=== PATIENT | male | born 1950 | race African-American/Black ===

== ENCOUNTER 2024-08-19 13:38 | Emergency (ER) | payer MEDICARE, MEDICAID ==
[~2024-08-19] VITALS: Ht 162.6 cm; Wt 61.4 kg
[~2024-08-19 13:38] MED LIST: DIAZ10TA3 PO; PHEN100C PO; PHENOBARBITAL PO; prozac PO
[2024-08-19 15:21] LABS: Basophils # (auto) 0 10 ^3/uL (0-0.2); Basophils % (auto) 0.4 % (0.0-2.0); Eosinophils # (auto) 0.1 10 ^3/uL (0-0.8); Eosinophils % (auto) 2.4 % (0.0-7.0); Hematocrit 48.7 % (41.0-53.0); Hemoglobin 16.4 g/dL (13.5-17.5); Lymphocytes # (auto) 1.3 10 ^3/uL (0.4-5.4); Lymphocytes % (auto) 40.1 % (10.0-50.0); Mean Corpuscular Hemoglobin 29.8 pg (28.0-32.0); Mean Corpuscular Hgb Conc. 33.6 g/dL (32.0-36.0); Mean Corpuscular Volume 88.4 fL (80.0-100.0); Monocytes # (auto) 0.4 10 ^3/uL (0-1.3); Monocytes % (auto) 11.5 % (0.0-12.0); Neutrophils # (auto) 1.5 10 ^3/uL (1.6-8.6); Neutrophils % (auto) 45.6 % (37.0-80.0); Nucleated Red Blood Cells % 0.5 %; Platelet Count (auto) 124 10^3/uL (140-450); Red Cell Distribution Width 14.6 % (11.8-14.3); White Blood Cell 3.3 10^3/uL (4.4-10.8)
[2024-08-19 15:36] LABS: Alanine Aminotransferase 36 U/L (7-40); Albumin 4.2 g/dL (3.2-4.8); Alkaline Phosphatase 120 U/L (46-116); Anion Gap 6 (5-15); Aspartate Aminotransferase 37 U/L (13-40); Bilirubin, Total 0.4 mg/dL (0.2-1.0); Blood Urea Nitrogen 16 mg/dL (9-23); Calcium 9.7 mg/dL (8.7-10.4); Carbon Dioxide 27 mmol/L (20-31); Chloride 108 mmol/L (98-107); Glucose 82 mg/dL (74-106); Potassium 4.1 mmol/L (3.5-5.1); Sodium 141 mmol/L (136-145)
[2024-08-19 16:10] LABS: Urine Bacteria FEW /hpf (None Seen); Urine Blood Negative /uL (Negative); Urine Clarity Clear (Clear); Urine Color Yellow (Yellow); Urine Mucus FEW (None Seen); Urine Protein, UAD TRACE (Negative); Urine Specific Gravity 1.026 (1.001-1.035); Urine Urobilinogen Normal (Negative); Urine WBC 1 /hpf (0 - 3); Urine pH 5.5 (5.0-9.0)
[2024-08-19] MEDS ORDERED: AUG875T PO (16:17)
[2024-08-19 17:48] VITALS: BP 145/85; RESP 20; TEMP 98.6; O2SAT 96
[2024-08-19 17:49] VITALS: PULSE 66
[2024-08-19] MEDS: cefTRIAXone W LIDOCAINE 1 GM IM IM ONE (18:03)
[2024-08-19] MEDS: cefTRIAXone SOD 1,000 MG VL ONE (18:04)
== END 2024-08-19 18:07 | disposition home or self-care (01) ==
LOC: ER 13:38
DX: L03.116 Cellulitis of left lower limb (principal); Z79.899 Other long term (current) drug therapy; Z88.5 Allergy status to narcotic agent
CPT/HCPCS: 36415; 73630; 80053; 81001; 85025; 96372; 99284; J0696

== ENCOUNTER 2024-08-23 14:04 | Emergency (ER) | payer MEDICARE, MEDICAID ==
[~2024-08-23] VITALS: Ht 154.9 cm; Wt 63.7 kg
[~2024-08-23 14:04] MED LIST changes: +AUG875T PO
[2024-08-23 15:58] VITALS: BP 121/82; PULSE 82; RESP 16; TEMP 97.8; O2SAT 96
== END 2024-08-23 16:17 | disposition home or self-care (01) ==
LOC: ER 14:04
DX: Z48.00 Encounter for change or removal of nonsurgical wound dressing (principal); R22.41 Localized swelling, mass and lump, right lower limb; Z79.899 Other long term (current) drug therapy; Z88.5 Allergy status to narcotic agent